=== PATIENT | female | born 1960 | race Hispanic/Latino ===

== ENCOUNTER 2018-07-17 08:59 | Outpatient (CLI) | payer MEDICAID ==
[2018-07-17 09:36] LABS: Blood Urea Nitrogen 10 mg/dL (7-17)
--- NOTE | 2018-07-17 11:23 | Cat Scan Report ---
CT CHEST WITH CONTRAST: HISTORY: Enlarged lymph nodes, adenopathy. COMPARISON: none. TECHNIQUE: Helical CT in 1.25mm intervals following IV contrast. Sagittal and coronal reformatted images. FINDINGS: Thyroid gland: Normal. Tracheobronchial tree: Normal. Esophagus: Normal. Heart: Normal. Pericardium: Normal. Mediastinum: Normal. Lung [place]: Normal. Pleural Spaces: Normal. Musculoskeletal: Normal. IMPRESSION: Unremarkable CT chest with contrast. No thoracic adenopathy is detected.
--- NOTE | 2018-07-17 11:24 | Cat Scan Report ---
CT NECK WITH CONTRAST: HISTORY: Enlarged lymph nodes, adenopathy. TECHNIQUE: Helical CT following IV contrast. Sagittal and coronal reformatted images. FINDINGS: The parotid and submandibular glands are normal. The carotid sheaths are intact. There is no evidence of adenopathy within the neck. The thyroid gland is normal. The glottic structures are normal. The airway is patent. Strap musculature is unremarkable. Hyoid bone and thyroid cartilage are intact. Mild cervical spondylosis is noted. IMPRESSION: Unremarkable CT neck. No cervical or supraclavicular adenopathy is detected.
== END 2018-07-17 09:00 | disposition home or self-care (01) ==
LOC: CT 08:59
PROVIDERS: ATTEND Surgery
DX: M47.812 Spondylosis without myelopathy or radiculopathy, cervical region (principal); Z87.891 Personal history of nicotine dependence
CPT/HCPCS: 36415; 70491; 71260; 82565; 84520; Q9967